=== PATIENT | female | born 1940 | race Hispanic/Latino ===

== ENCOUNTER 2018-04-26 15:17 | Emergency (ER) | payer OTHER ==
[2018-04-26] MEDS ORDERED: ONDANSETRON 4 MG/2 ML VIAL ONE (16:31)
--- NOTE | 2018-04-26 16:35 | RAD REPORT ---
EXAM DESCRIPTION: Lewis Single View04/26/2018 4:28 pm CLINICAL HISTORY: Hypertension COMPARISON: none FINDINGS: The lungs appear clear of acute infiltrate. The heart is normal size IMPRESSION: No acute abnormalities displayed
[2018-04-26 16:40] LABS: Absolute Lymphocytes (CBC) 0.9 K/uL (0.7-4.9); Absolute Monocytes 0.6 K/uL (0.1-1.3); Basophils % 0.3 % (0-1.3); Hematocrit 34.8 % (36.0-45.0); Lymphocytes % 12.1 % (15.3-44.8); MCH 28.1 pg (27.0-35.0); MCV 85.5 fL (80-100); MPV 8.1 fL (7.6-11.3); Monocytes % 8.5 % (3.3-12.3); RBC Red Blood Cell Count 4.07 M/uL (3.86-4.86)
[2018-04-26 16:41] LABS: Protime INR 1.13
[2018-04-26 16:52] LABS: ALT/SGPT 15 U/L (12-78); AST/SGOT 12 U/L (15-37); Alkaline Phosphatase 118 U/L (45-117); BUN Blood Urea Nitrogen 18 mg/dL (7-18); Bicarbonate 25 mmol/L (21-32); Bilirubin Direct 0.2 mg/dL (0-0.2); Bilirubin Total 0.5 mg/dL (0.2-1.0); Glucose Level 116 mg/dL (74-106); Magnesium 2.1 mg/dL (1.8-2.4); NT PRO-BNP 244 pg/mL (<450); Potassium 3.8 mmol/L (3.5-5.1); Protein, Total 8.7 g/dL (6.4-8.2); Sodium Level 140 mmol/L (136-145); Troponin (Emerg Dept Use Only) < 0.02 ng/mL (0.0-0.045)
--- NOTE | 2018-04-26 17:41 | EDPHYS ---
Physician Documentation [facility] Name: Virgen Apple Age: 77 yrs Sex: Female : 1940 Arrival Date: 04/26/2018 Time: 15:21 Bed 26 Private MD: Radhika Vital R ED Physician Rojelio Hammond HPI: 04/26 21:17 This 77 yrs old Female presents to ER via Wheelchair with complaints of High kdr Blood Pressure. 21:17 The patient has elevated blood pressure and discovered this at home. Onset: The kdr symptoms/episode began/occurred Long standing. Modifying factors: The symptoms are aggravated by Nothing, The symptoms are alleviated by Nothing. Associated signs and symptoms: Pertinent positives: headache, weakness, Pertinent negatives: chest pain, dizziness, dyspnea, lightheadedness, nausea, visual changes, vomiting. Severity of symptoms: At its worst the blood pressure was moderate, in the emergency department the blood pressure is improved, moderately. The patient has experienced similar episodes in the past, chronically. It is unknown whether or not the patient has recently seen a physician. Historical: - Allergies: 15:28 Ciprofloxacin; sv 15:28 Clindamycin; sv 15:28 Codeine; sv 15:28 Keflex; sv 15:28 Sulfa (Sulfonamide Antibiotics); sv 15:28 Latex, Natural Rubber; sv 15:28 GABAPENTIN; sv - Home Meds: 16:08 famotidine 20 mg Oral tab 1 tab once daily [Active]; hydrocodone-acetaminophen 7.5-325 kr2 mg oral tab 1 tab every 6 hours [Active]; Vitamin D Oral [Active]; lisinopril 20 mg Oral tab 1 tab once daily [Active]; loratadine 10 mg oral tab 1 tab once daily [Active]; levothyroxine 100 mcg tab 1 tab once daily [Active]; buspirone 10 mg Oral tab 1 tab four times a day for Generalized Anxiety Disorder [Active]; - PMHx: 15:28 spinal stenosis; sv - PSHx: 15:28 ; Hysterectomy; Knee surgery; foot; sv - Immunization history:: Adult Immunizations unknown. - Social history:: Smoking status: Patient/guardian denies using tobacco. - Ebola Screening: : No symptoms or risks identified at this time. ROS: 21:17 Constitutional: Negative for fever, chills, and weight loss, Eyes: Negative for injury, kdr pain, redness, and discharge, ENT: Negative for injury, pain, and discharge, Neck: Negative for injury, pain, and swelling, Cardiovascular: Negative for chest pain, palpitations, and edema, Respiratory: Negative for shortness of breath, cough, wheezing, and pleuritic chest pain, Abdomen/GI: Negative for abdominal pain, nausea, vomiting, diarrhea, and constipation, Back: Negative for injury and pain, : Negative for injury, bleeding, discharge, and swelling, Skin: Negative for injury, rash, and discoloration, Neuro: Negative for headache, weakness, numbness, tingling, and seizure activity. Psych: Negative for depression, anxiety, suicide ideation, homicidal ideation, and hallucinations, Allergy/Immunology: Negative for hives, rash, and allergies, Endocrine: Negative for neck swelling, polydipsia, polyuria, polyphagia, and marked weight changes, Hematologic/Lymphatic: Negative for swollen nodes, abnormal bleeding, and unusual bruising. 21:17 MS/extremity: Positive for decreased range of motion, pain, The patient is to weak to bear weight. Exam: 21:17 Constitutional: This is a well developed, well nourished patient who is awake, alert, kdr and in no acute distress. Head/Face: Normocephalic, atraumatic. Eyes: Pupils equal round and reactive to light, extra-ocular motions intact. Lids and lashes normal. Conjunctiva and sclera are non-icteric and not injected. Cornea within normal limits. Periorbital areas with no swelling, redness, or edema. Neck: Trachea midline, no thyromegaly or masses palpated, and no cervical lymphadenopathy. Supple, full range of motion without nuchal rigidity, or vertebral point tenderness. No Meningismus. Chest/axilla: Normal chest wall appearance and motion. Nontender with no deformity. No lesions are appreciated. Cardiovascular: Regular rate and rhythm with a normal S1 and S2. No gallops, murmurs, or rubs. Normal PMI, no JVD. No pulse deficits. Respiratory: Lungs have equal breath sounds bilaterally, clear to auscultation and percussion. No rales, rhonchi or wheezes noted. No increased work of breathing, no retractions or nasal flaring. Abdomen/GI: Soft, non-tender, with normal bowel sounds. No distension or tympany. No guarding or rebound. No evidence of tenderness throughout. Back: No spinal tenderness. No costovertebral tenderness. Full range of motion. Skin: Warm, dry with normal turgor. Normal color with no rashes, no lesions, and no evidence of cellulitis. Neuro: Awake and alert, GCS 15, oriented to person, place, time, and situation. Cranial nerves II-XII grossly intact. Motor strength 5/5 in all extremities. Sensory grossly intact. Cerebellar exam normal. Normal gait. Psych: Awake, alert, with orientation to person, place and time. Behavior, mood, and affect are within normal limits. 21:17 Musculoskeletal/extremity: Extremities: The patient has chronic swelling and weakness to both lower extremities. She denies any new pain, injury or weakness. Vital Signs: 15:26 BP 165 / 86; Pulse 82; Resp 18; Temp 97.7; Pulse Ox 98% ; Weight 80.29 kg; Height 5 ft. sv 4 in. (162.56 cm); Pain 8/10; 17:00 BP 152 / 80; Pulse 80; Resp 18; Pulse Ox 98% on R/A; kr2 18:00 BP 150 / 84; Pulse 80; Resp 18; Pulse Ox 100% on R/A; kr2 15:26 Body Mass Index 30.38 (80.29 kg, 162.56 cm) sv MDM: 17:40 Patient medically screened. kdr 21:17 Data reviewed: vital signs, nurses notes, lab test result(s). Counseling: I had a kdr detailed discussion with the patient and/or guardian regarding: the historical points, exam findings, and any diagnostic results supporting the discharge/admit diagnosis, lab results, the need for outpatient follow up. ED course: The patient refused further treatment and specifically the CT head and neck. Though I explained to her that given the recent injections to her neck that a CT was needed to r/o complications from the injections which could be the cause of her HIGHTOWER. [id number], she continued to refuse the exams and any further teatment. 04/26 16:01 Order name: Basic Metabolic Panel; Complete Time: 17:05 kdr 04/26 16:01 Order name: CBC with Diff; Complete Time: 17:05 kdr 04/26 16:01 Order name: LFT's; Complete Time: 17:05 [facility] 04/26 16:01 Order name: Magnesium; Complete Time: 17:05 [facility] 04/26 16:01 Order name: NT PRO-BNP; Complete Time: 17:05 [facility] 04/26 16:01 Order name: PT-INR; Complete Time: 17:05 [facility] 04/26 16:01 Order name: Troponin (emerg Dept Use Only); Complete Time: 17:05 [facility] 04/26 16:01 Order name: XRAY Chest (1 view); Complete Time: 17: [facility] 04/26 16:01 Order name: Cardiac monitoring; Complete Time: 16:28 [facility] 04/26 16:01 Order name: IV Saline Lock; Complete Time: 16: [facility] 04/26 16:01 Order name: Labs collected and sent; Complete Time: 16: [facility] 04/26 16:01 Order name: O2 Per Protocol; Complete Time: 16: [facility] 04/26 16:01 Order name: O2 Sat Monitoring; Complete Time: 16: [facility] Administered Medications: 16:40 Drug: Zofran 4 mg Route: IVP; Site: right antecubital; kr2 17:00 Follow up: Response: No adverse reaction; Nausea is decreased kr2 Disposition: 04/26/18 17:40 Discharged to Home. Impression: Headache, Hypertensive heart disease. - Condition is Stable. - Discharge Instructions: General Headache Without Cause, Hypertension, [id number]. - Medication Reconciliation Form, Thank You Letter form. - Follow up: Radhika Vital MD; When: 1 - 2 days; Reason: If symptoms return, Further diagnostic work-up, Recheck today's complaints, Continuance of care, Re-evaluation by your physician. - Problem is an ongoing problem. - Symptoms are unchanged. Signatures: Dispatcher [employer] [facility] Rohini Campbell RN RN sv Rojelio Hammond MD MD [facility] Missy Ji RN RN kr2 Corrections: (The following items were deleted from the chart) 17:49 16:02 Head C Spine MPR Wo Con+CT.RAD.BRZ ordered. EDHI EDHI 18:21 17:40 04/26/2018 17:40 Discharged to Home. Impression: Headache; Hypertensive heart kr2 disease. Condition is Stable. Forms are Medication Reconciliation Form, Thank You Letter, Antibiotic Education, Prescription Opioid Use. Follow up: Radhika Vital; When: 1 - 2 days; Reason: If symptoms return, Further diagnostic work-up, Recheck today's complaints, Continuance of care, Re-evaluation by your physician. Problem is an ongoing problem. Symptoms are unchanged. kdr
--- NOTE | 2018-04-26 17:41 | ER ---
Nurse's Notes [facility] Name: Virgen Apple Age: 77 yrs Sex: Female : 1940 Arrival Date: 04/26/2018 Time: 15:21 Bed 26 Private MD: Radhika Vital R Diagnosis: Headache;Hypertensive heart disease Presentation: 04/26 15:25 Presenting complaint: Patient states: HTN at home that was 192/105, c/o headache and sv neck pain today. Transition of care: patient was not received from another setting of care. Onset of symptoms was April 26, 2018. Care prior to arrival: None. 15:25 Method Of Arrival: Wheelchair sv 15:25 Acuity: YANI 3 sv 16:09 Risk Assessment: Do you want to hurt yourself or someone else? Patient reports no kr2 desire to harm self or others. Initial Sepsis Screen: Does the patient meet any 2 criteria? No. Patient's initial sepsis screen is negative. Does the patient have a suspected source of infection? No. Patient's initial sepsis screen is negative. Triage Assessment: 15:25 General: Appears in no apparent distress. comfortable, Behavior is calm, cooperative, sv appropriate for age. Pain: Complains of pain in head Pain currently is 8 out of 10 on a pain scale. EENT: No signs and/or symptoms were reported regarding the EENT system. Neuro: Level of Consciousness is awake, alert, obeys commands, Oriented to person, place, time, situation, Speech is normal, Reports headache. Respiratory: Respiratory effort is even, unlabored, Respiratory pattern is regular, symmetrical. Derm: Skin is pink, warm \\T\\ dry. Historical: - Allergies: 15:28 Ciprofloxacin; sv 15:28 Clindamycin; sv 15:28 Codeine; sv 15:28 Keflex; sv 15:28 Sulfa (Sulfonamide Antibiotics); sv 15:28 Latex, Natural Rubber; sv 15:28 GABAPENTIN; sv - Home Meds: 16:08 famotidine 20 mg Oral tab 1 tab once daily [Active]; hydrocodone-acetaminophen 7.5-325 kr2 mg oral tab 1 tab every 6 hours [Active]; Vitamin D Oral [Active]; lisinopril 20 mg Oral tab 1 tab once daily [Active]; loratadine 10 mg oral tab 1 tab once daily [Active]; levothyroxine 100 mcg tab 1 tab once daily [Active]; buspirone 10 mg Oral tab 1 tab four times a day for Generalized Anxiety Disorder [Active]; - PMHx: 15:28 spinal stenosis; sv - PSHx: 15:28 ; Hysterectomy; Knee surgery; foot; sv - Immunization history:: Adult Immunizations unknown. - Social history:: Smoking status: Patient/guardian denies using tobacco. - Ebola Screening: : No symptoms or risks identified at this time. Screenin:08 Abuse screen: Denies threats or abuse. Denies injuries from another. Nutritional kr2 screening: No deficits noted. Tuberculosis screening: No symptoms or risk factors identified. Fall Risk Ambulatory Aid- None/Bed Rest/Nurse Assist (0 pts). Assessment: 15:30 General: Appears in no apparent distress. uncomfortable, obese, well groomed, Behavior kr2 is cooperative, anxious. Pain: Complains of pain in head, neck and left knee Pain does not radiate. Pain currently is 6 out of 10 on a pain scale. Quality of pain is described as aching, Is continuous, Alleviated by medications, rest, Aggravated by increased activity, weight bearing. Neuro: Level of Consciousness is awake, alert, obeys commands, Oriented to person, place, time, situation, Appropriate for age. Cardiovascular: Capillary refill < 3 seconds in bilateral fingers Patient's skin is warm and dry. Respiratory: Airway is patent Respiratory effort is even, unlabored, Respiratory pattern is regular, symmetrical. GI: Abdomen is flat, non-distended. : Urine is clear. Derm: Skin is intact, is healthy with good turgor, Skin is pink, warm \\T\\ dry. Musculoskeletal: Circulation, motion, and sensation intact. Range of motion: limited in left hip and left knee. 16:40 Reassessment: Patient refused CT scan, states, "I cannot do those big machines they kr2 scare me I have phobias." Dr. Hammond at bedside, he explained the need for the exam and offered patient medication to help her relax, she refused. 18:08 Reassessment: Patient appears in no apparent distress at this time. Patient and/or kr2 family updated on plan of care and expected duration. Pain level reassessed. Patient is alert, oriented x 3, equal unlabored respirations, skin warm/dry/pink. Vital Signs: 15:26 BP 165 / 86; Pulse 82; Resp 18; Temp 97.7; Pulse Ox 98% ; Weight 80.29 kg; Height 5 ft. sv 4 in. (162.56 cm); Pain 8/10; 17:00 BP 152 / 80; Pulse 80; Resp 18; Pulse Ox 98% on R/A; kr2 18:00 BP 150 / 84; Pulse 80; Resp 18; Pulse Ox 100% on R/A; kr2 15:26 Body Mass Index 30.38 (80.29 kg, 162.56 cm) sv ED Course: 15:21 Patient arrived in ED. mr 15:22 Radhika Vital MD is Private Physician. mr 15:26 Triage completed. sv 15:28 Arm band placed on left wrist. sv 15:30 Rojelio Hammond MD is Attending Physician. kdr 15:51 Missy Ji, RN is Primary Nurse. kr2 16:09 Patient has correct armband on for positive identification. Bed in low position. Call kr2 light in reach. Side rails up X 1. Pulse ox on. NIBP on. Door closed. 16:26 XRAY Chest (1 view) In Process Unspecified. EDMS 16:26 Basic Metabolic Panel Sent. ds4 16:26 CBC with Diff Sent. ds4 16:26 LFT's Sent. ds4 16:27 Magnesium Sent. ds4 16:27 NT PRO-BNP Sent. ds4 16:27 PT-INR Sent. ds4 16:27 Troponin (emerg Dept Use Only) Sent. ds4 16:36 Radiology exam delayed due to patient refusing exam at this time. nj 16:40 Missy Ji, RN is Primary Nurse. kr2 17:39 Radhika Vital MD is Referral Physician. kdr 18:00 No provider procedures requiring assistance completed. IV discontinued, intact, kr2 bleeding controlled, No redness/swelling at site. Pressure dressing applied. Administered Medications: 16:40 Drug: Zofran 4 mg Route: IVP; Site: right antecubital; kr2 17:00 Follow up: Response: No adverse reaction; Nausea is decreased kr2 Outcome: 17:40 Discharge ordered by . kdr 18:00 Discharged to home via wheelchair, with family. kr2 18:00 Condition: stable 18:00 Discharge instructions given to patient, Instructed on discharge instructions, follow up and referral plans. Demonstrated understanding of instructions, follow-up care. 18:21 Patient left the ED. kr2 Signatures: Dispatcher [employer] EDRohini Collazo RN RN sv Rittger, Kevin, MD MD kdr Rivera, Maria mr Giovani Hernandez ds4 Bruce Nichole Karey, RN RN kr2
== END 2018-04-26 18:21 | disposition home or self-care (01) ==
LOC: ER 15:17
DX: I11.9 Hypertensive heart disease without heart failure (principal); F41.9 Anxiety disorder, unspecified; Z88.1 Allergy status to other antibiotic agents; Z88.2 Allergy status to sulfonamides; Z88.3 Allergy status to other anti-infective agents; Z88.5 Allergy status to narcotic agent; Z88.8 Allergy status to other drugs, medicaments and biological substances; Z91.040 Latex allergy status; Z91.048 Other nonmedicinal substance allergy status
CPT/HCPCS: 36415; 71045; 80048; 80076; 83735; 83880; 84484; 85025; 85610; 96374; 99284; J2405